=== PATIENT | female | born 1985 | race Caucasian/White ===

== ENCOUNTER 2018-07-06 14:40 | Emergency (ER) | payer MEDICAID, OTHER ==
[2018-07-06 15:08] VITALS: RESP 18; O2SAT 99
[2018-07-06] MEDS ORDERED: Naproxen 500 MG TAB PO STA (15:50)
[2018-07-06] MEDS ORDERED: Naproxen 500 MG TAB PO ONE (16:14)
--- NOTE | 2018-07-06 16:16 | ED PDOC ---
Lower Extremity Pain/Injury Time Seen by Provider: 07/06/18 15:13 Chief Complaint (Nursing): Lower Extremity Problem/Injury Chief Complaint (Provider): Lower Extremity Problem/Injury History Per: Patient History/Exam Limitations: no limitations Onset/Duration Of Symptoms: Days (x7) Current Symptoms Are (Timing): Still Present Additional Complaint(s): 32 y/o female with no PMHx presents to the ED for evaluation of right lower leg pain. Patient states approximately one wee ago while at work, a metal dryer door fell off the hinge and struck her in the lower leg. Patient reports the brusing improved since the incident but still has persistent pain that radiates into the ankle. Patient reports of taking Ibuprofen for symptoms but has not taken any since Friday. Otherwise: No other complaints. PMD: Laura Moy LNMP: 06/24/2018 Past Medical History Reviewed: Historical Data, Nursing Documentation, Vital Signs Vital Signs: Last Vital Signs Temp 98.6 F 07/06/18 15:07 Pulse 84 07/06/18 15:07 Resp 18 07/06/18 15:07 BP 128/86 07/06/18 15:07 Pulse Ox 99 07/06/18 15:07 - Medical History PMH: Anemia, Anxiety, Gastritis, HTN (PIH), Rheumatoid Arthritis - Surgical History Surgical History: - Family History Family History: States: Unknown Family Hx - Home Medications Home Medications: Ambulatory Orders Medication Instructions Recorded Naproxen [Naprosyn] 1 tab PO BID PRN #20 tab 08/18/16 Ibuprofen [Motrin Tab] 600 mg PO Q6 PRN #20 tab 07/06/18 - Allergies Allergies/Adverse Reactions: Allergies Allergy/AdvReac Type Severity Reaction Status Date / Time mushroom Allergy Uncoded 09/23/15 09:44 Review of Systems ROS Statement: Except As Marked, All Systems Reviewed And Found Negative Musculoskeletal: Positive for: Leg Pain (Right lower radiating into the ankle ) Physical Exam - Reviewed Nursing Documentation Reviewed: Yes Vital Signs Reviewed: Yes - Physical Exam Comments: GENERAL APPEARANCE: Patient is resting comfortably, awake, alert, oriented x 3, in no acute distress. SKIN: Warm, dry; (-) cyanosis. LOWER EXTREMITY: (+) Tenderness to the distal tibia. (-) ecchymosis, (+) minimal edema, (-) erythema, (-) skin break. Full ROM at the foot, ankle and knee. Achilles tendon intact and nontender. Knee and foot: (-) injury. CARDIOVASCULAR: (+) distal pulse. NEUROLOGIC: (+) distal sensation. - ECG O2 Sat by Pulse Oximetry: 99 (RA) Pulse Ox Interpretation: Normal Medical Decision Making Medical Decision Making: Time: 154 Impression: Leg Contusion Plan: -- Tibia Fibula Right XR -- Motrin 600 mg PO -- Re-evaluation Time: 163 XR RESULTS FINDINGS: BONES: No fracture or destructive lesion. JOINT SPACES: Unremarkable. OTHER FINDINGS: None. IMPRESSION: Unremarkable radiographs of the right tibia and fibula. ____ On re-evaluation, patient reports improvement of symptoms. On exam, patient remains AAOx3, in no acute distress. On exam, neck is supple, lungs CTA, cardiac RRR, neuro exam shows no focal findings. VSS, stable for discharge. RICE encouraged. Diagnostic results d/w the patient in great detail. Dx of contusion of lower extremity d/w the patient. Based on history, exam and diagnostic results plan will be for discharge and outpatient follow up. Advised to follow up with primary care physician in 1-2 days without fail. Advised to take medication as prescribed. Return to the emergency room at any time for any new or worsening symptoms. Patient states she fully agrees with and understands discharge instructions. States that she agrees with the plan and disposition. Verbalized and repeated discharge instructions and plan. I have given the patient opportunity to ask any additional questions. Scribe Attestation: Documented by Kenzie West, acting as a scribe for Yara Hilton PA-C. Provider Scribe Attestation: All medical record entries made by the Scribe were at my direction and personally dictated by me. I have reviewed the chart and agree that the record accurately reflects my personal performance of the history, physical exam, medical decision making, and the department course for this patient. I have also personally directed, reviewed, and agree with the discharge instructions and disposition. Disposition - Clinical Impression Clinical Impression: Contusion of lower leg, right - Patient ED Disposition Is Patient to be Admitted: No Counseled Patient/Family Regarding: Studies Performed, Diagnosis, Need For Followup, Rx Given - Disposition Referrals: Pito Grider MD [Medical Doctor] - Laura Moy APN [Advanced Practice Nurse] - Disposition: Routine/Home Disposition Time: 17:40 Condition: STABLE Additional Instructions: The emergency medical care you received today was directed at your acute symptoms. If you were prescribed any medication, please fill it and take as directed. It may take several days for your symptoms to resolve. Return to the Emergency Department if your symptoms worsen, do not improve, or if you have any other problems. Please contact your doctor in 2 days for re-evaluation and follow up / or call one of the physicians/clinics you have been referred to that are listed on the Patient Visit Information form that is included in your discharge packet. Bring any paperwork you were given at discharge with you along with any medications you are taking to your follow up visit. Our treatment cannot replace ongoing medical care by a primary care provider (PCP) outside of the emergency department. Prescriptions: Ibuprofen [Motrin Tab] 600 mg PO Q6 PRN #20 tab PRN Reason: Pain, Moderate (4-7) Instructions: Contusion (DC) Forms: [place] (Jordanian) Print Language: PASHTO
--- NOTE | 2018-07-06 17:46 | RAD ---
Date of service: 07/06/2018 PROCEDURE: Radiographs of the right tibia and fibula. HISTORY: trauma COMPARISON: None available TECHNIQUE: Frontal and lateral views obtained. FINDINGS: BONES: No fracture or destructive lesion. JOINT SPACES: Unremarkable. OTHER FINDINGS: None. IMPRESSION: Unremarkable radiographs of the right tibia and fibula.
[2018-07-06 17:54] VITALS: BP 122/78; PULSE 78; TEMP 98
== END 2018-07-06 17:53 | disposition home or self-care (01) ==
LOC: H.ER 14:40
DX: S80.11XA Contusion of right lower leg, initial encounter (principal); W22.8XXA Striking against or struck by other objects, initial encounter; Y99.0 Civilian activity done for income or pay; F41.9 Anxiety disorder, unspecified; M06.9 Rheumatoid arthritis, unspecified

== ENCOUNTER 2018-10-18 14:40 | Emergency (ER) | payer MEDICAID ==
[2018-10-18 15:07] VITALS: BP 137/92; PULSE 78; RESP 18; TEMP 98.2; O2SAT 99
--- NOTE | 2018-10-18 15:28 | ED PDOC ---
HPI: Trauma/Fall - HPI Time Seen by Provider: 10/18/18 15:09 Chief Complaint (Nursing): Trauma Chief Complaint (Provider): Neck/Back Pain s/p Fall History Per: Patient History/Exam Limitations: no limitations Injury Occurred (Timing): Days Ago: (3) Additional Complaint(s): 33 year old female presents to the ED with complaints of upper back and neck pain status post falling down wooden steps on 10/16/18. Patient reports she has been taking Ibuprofen with minimal relief - last dose at 0200 earlier this morning. Patient also reports a sore throat which began yesterday with (+) sick contact - her daughter was recently diagnosed with strep. Otherwise: (-) LOC (-) headache (-) dizzyness (-) N/V/D, (-) visual changes (-) numbness /weakness (-) abdominal pain (-) chest pain (-) SOB/cough (-) saddle anesthesia (-) incontinence/urinary symptoms. LMP: 10/16/18. PCP: Laura Moy APN at [facility] Past Medical History Reviewed: Historical Data, Nursing Documentation, Vital Signs Vital Signs: Last Vital Signs Temp 98.2 F 10/18/18 15:04 Pulse 78 10/18/18 15:04 Resp 18 10/18/18 15:04 BP 137/92 H 10/18/18 15:04 Pulse Ox 99 10/18/18 15:04 - Medical History PMH: Anemia, Anxiety, Gastritis, HTN (PIH), Rheumatoid Arthritis - Surgical History Surgical History: (x1) Other surgeries: D&C - Family History Family History: States: Unknown Family Hx - Living Arrangements Living Arrangements: With Family - Home Medications Home Medications: Ambulatory Orders Medication Instructions Recorded RX: Naproxen [Naprosyn] 1 tab PO BID PRN #20 tab 08/18/16 RX: Ibuprofen [Motrin Tab] 600 mg PO Q6 PRN #20 tab 07/06/18 Methocarbamol [Robaxin-750] 750 mg PO Q8 PRN #12 tab 10/18/18 RX: Naproxen 500 mg PO BID PRN #20 tab 10/18/18 - Allergies Allergies/Adverse Reactions: Allergies Allergy/AdvReac Type Severity Reaction Status Date / Time mushroom Allergy Uncoded 09/23/15 09:44 Review of Systems ROS Statement: Except As Marked, All Systems Reviewed And Found Negative Musculoskeletal: Positive for: Neck Pain, Back Pain (upper) Neurological: Negative for: Headache, Dizziness, Other (LOC) Physical Exam - Reviewed Nursing Documentation Reviewed: Yes Vital Signs Reviewed: Yes - Physical Exam Comments: GENERAL APPEARANCE: Patient is awake, alert, oriented x 3, in no acute distress. Resting comfortably. SKIN: Warm, dry; (-) cyanosis. HEAD: (-) swelling and tenderness, with no palpable bony defect. EYES: (-) nystagmus. ENMT: Mucous membranes moist. Nose: (-) tenderness. No oral trauma. Pharynx: 1+ tonsillar hypertrophy (+) faint erythema (-) exudates. Airway patent: (-) stridor. Full ROM of mandible without pain. NECK: Supple with FROM. (+) bilateral paracervical tenderness (-) midline tender ness. (-) lymphadenopathy. CHEST AND RESPIRATORY: (-) rales, (-) rhonchi, (-) wheezes; breath sounds equal bilaterally. Respirations even and nonlabored, speaking in full sentences. HEART AND CARDIOVASCULAR: (-) irregularity ABDOMEN AND GI: Soft; (-) tenderness (-) guarding (-) distention. BACK: (+) bilateral trapezius and posterior shoulder tenderness (+) left parathoracic tenderness. EXTREMITIES: (-) deformity, (-) tenderness, (-) edema, (-) ecchymosis, (-) limitation of motion, distal pulses 2+. NEURO AND PSYCH: GCS=15. Mental status as above. personal banker: Pupils equal & reactive . EOMI and painless. (-) facial asymmetry. Tongue and uvula midline. Strength 5/5 in all extremities. No gross sensory deficits. Gait: steady. Speech: clear. - Laboratory Results Urine POC: Negative - ECG O2 Sat by Pulse Oximetry: 99 (RA) Pulse Ox Interpretation: Normal Medical Decision Making Medical Decision Making: Initial Impression: Acute neck and back pain s/p fall; concern for strep infection. Initial Plan: * Urine * Flexeril 10mg PO (patient declined) * Toradol 30mg IM (patient declined) * Throat culture * Rapid strep 1625 Upreg: Negative Rapid Strep: Negative On re-evaluation, patient reports improvement of symptoms. On exam, patient remains AAOx3, in no acute distress. Vitals stable. Lab /Diagnostic results d/w the patient in great detail. Diagnosis of sore throat, acute neck and back pain s/p fall on stairs, musculoskeletal pain d/w the patient. Based on history, exam and diagnostic results, plan will be for outpatient follow up with clinic/ortho. Patient instructed to follow-up with pmd / referral provided / the clinic in 1- 2 days without fail. Advised to take medication as prescribed. Return to the emergency room at any time for any new or worsening symptoms. Patient states she fully agrees with and understands discharge instructions. States that she agrees with the plan and disposition. Verbalized and repeated discharge instructions and plan. I have given the patient opportunity to ask any additional questions. Scribe Attestation: Documented by Marion Kenny, acting as a scribe for Yara Hilton PA-C. Provider Scribe Attestation: All medical record entries made by the Scribe were at my direction and personally dictated by me. I have reviewed the chart and agree that the record accurately reflects my personal performance of the history, physical exam, medical decision making, and the department course for this patient. I have also personally directed, reviewed, and agree with the discharge instructions and disposition. Disposition - Clinical Impression Clinical Impression: Sore throat, Upper back pain, Neck pain, Fall down stairs, Musculoskeletal pain - Patient ED Disposition Is Patient to be Admitted: No Counseled Patient/Family Regarding: Studies Performed, Diagnosis, Need For Followup, Rx Given - Disposition Referrals: [facility] [Outside] Nery Nath MD [Staff Provider] - Disposition: Routine/Home Disposition Time: 16:30 Condition: STABLE Additional Instructions: The emergency medical care you received today was directed at your acute symptoms. If you were prescribed any medication, please fill it and take as directed. It may take several days for your symptoms to resolve. Return to the Emergency Department if your symptoms worsen, do not improve, or if you have any other problems. Please contact your doctor in 2 days for re-evaluation and follow up / or call one of the physicians/clinics you have been referred to that are listed on the Patient Visit Information form that is included in your discharge packet. Bring any paperwork you were given at discharge with you along with any medications you are taking to your follow up visit. Our treatment cannot replace ongoing medical care by a primary care provider (PCP) outside of the emergency department. Prescriptions: Methocarbamol [Robaxin-750] 750 mg PO Q8 PRN #12 tab PRN Reason: Muscle Spasm RX: Naproxen 500 mg PO BID PRN #20 tab PRN Reason: Pain, Moderate (4-7) Instructions: Viral Pharyngitis, Sore Throat in Adults, Upper Back Pain, Muscle and Bone Pain (DC), Generalized Neck Pain (DC) Forms: [facility] (Paraguayan) Print Language: WELSH - POA Present On Arrival: None Results - Lab Results Lab Results: 10/18/18 15:25 Grp A Beta Strep Ag Negative
== END 2018-10-18 16:54 | disposition home or self-care (01) ==
LOC: H.ER 14:40
DX: M54.9 Dorsalgia, unspecified (principal); M54.2 Cervicalgia; W10.9XXA Fall (on) (from) unspecified stairs and steps, initial encounter; Y92.89 Other specified places as the place of occurrence of the external cause; J02.9 Acute pharyngitis, unspecified